=== PATIENT | female | born 1975 | race Caucasian/White ===

== ENCOUNTER 2019-10-04 09:53 | Outpatient (CLI) | payer OTHER ==
[2019-10-04 13:05] LABS: ALBUMIN 3.6 g/dL (3.4-5.0); CHLORIDE 105 mmol/L (98-107)
[2019-10-04 13:10] LABS: ALANINE AMINOTRANSFERASE 34 U/L (12-78); ALKALINE PHOSPHATASE 75 U/L (45-117); ANION GAP 4 mmol/L (5-15); BILIRUBIN,TOTAL 0.5 mg/dL (0.2-1.0); CHOL/HDL RATIO 4.1; CHOLESTEROL, TOTAL 215 mg/dL (140-239); CREATININE 0.72 mg/dL (0.55-1.02); HDL CHOL % 24 % (28-40); HDL CHOLESTEROL (DIRECT) 52 mg/dL (40-60); LDL CHOLESTEROL,CALCULATED 132 mg/dL (54-169); LDL/HDL RATIO 2.5 (0.5-3.0); TOTAL PROTEIN 7.4 g/dL (6.4-8.2); TRIGLYCERIDES 155 mg/dL (50-200); VLDL CHOLESTEROL 31 mg/dL (0-25)
== END 2019-10-04 23:59 | disposition home or self-care (01) ==
LOC: CFH 09:53
PROVIDERS: ATTEND Internal Medicine Cardiovascular Disease
DX: E78.5 Hyperlipidemia, unspecified (principal)
CPT/HCPCS: 36415; 80053; 80061

== ENCOUNTER → 2019-10-10 | Outpatient (CLI) | payer OTHER | END | disposition home or self-care (01) | LOC: CVU 13:32 | PROVIDERS: ATTEND Internal Medicine Cardiovascular Disease | DX: I08.8 Other rheumatic multiple valve diseases (principal) | CPT/HCPCS: 93306 ==

== ENCOUNTER 2019-12-12 09:56 | Day surgery (SDC) | payer OTHER ==
[~2019-12-12] VITALS: Ht 160 cm; Wt 81.8 kg
[2019-12-12] MEDS ORDERED: SODIUM CHLORIDE 0.9% 1,000 ML IV SCH (10:30)
[2019-12-12] MEDS ORDERED: ASCO10004 PO (10:33)
[2019-12-12] MEDS ORDERED: ACYC-114 PO (10:33)
[2019-12-12] MEDS ORDERED: CALCIUM ZINC MAG PO (10:33)
[2019-12-12] MEDS ORDERED: Vitamin D PO (10:33)
[2019-12-12] MEDS ORDERED: IBUP-1223 PO (10:33)
[2019-12-12] MEDS ORDERED: PROPOFOL 10 MG/ML, 50ML ONE (12:03)
== END 2019-12-12 13:30 | disposition home or self-care (01) ==
LOC: CACL 09:56
PROVIDERS: ATTEND Internal Medicine Cardiovascular Disease
DX: Z09 Encounter for follow-up examination after completed treatment for conditions other than malignant neoplasm (principal); I10 Essential (primary) hypertension; E78.5 Hyperlipidemia, unspecified; F17.210 Nicotine dependence, cigarettes, uncomplicated; Z79.1 Long term (current) use of non-steroidal anti-inflammatories (NSAID); Z79.899 Other long term (current) drug therapy; Z88.0 Allergy status to penicillin; Z90.49 Acquired absence of other specified parts of digestive tract; Z98.890 Other specified postprocedural states
CPT/HCPCS: 93312; 93321; 93325; J2704

== ENCOUNTER → 2020-06-12 | Outpatient (CLI) | payer OTHER ==
[~2020-06-12] MED LIST: ACYC-114 PO; ASCO100018 PO; CALCIUM ZINC MAG PO; IBUP-1223 PO; Vitamin D PO
== END | disposition home or self-care (01) ==
LOC: CFH 15:54
PROVIDERS: ATTEND Registered Nurse
DX: I36.1 Nonrheumatic tricuspid (valve) insufficiency (principal); Q21.1 Atrial septal defect
CPT/HCPCS: 93306

== ENCOUNTER → 2020-08-19 | Outpatient (CLI) | payer OTHER ==
[2020-08-19 10:21] LABS: ALBUMIN 3.6 g/dL (3.4-5.0); ANION GAP 5 mmol/L (5-15); CHLORIDE 106 mmol/L (98-107)
[2020-08-19 10:25] LABS: ALANINE AMINOTRANSFERASE 42 U/L (12-78); ALKALINE PHOSPHATASE 77 U/L (45-117); BILIRUBIN,TOTAL 0.6 mg/dL (0.2-1.0); CHOL/HDL RATIO 3.3; CHOLESTEROL, TOTAL 214 mg/dL (140-239); CREATININE 0.71 mg/dL (0.55-1.02); HDL CHOL % 30 % (28-40); HDL CHOLESTEROL (DIRECT) 64 mg/dL (40-60); LDL CHOLESTEROL,CALCULATED 98 mg/dL (54-169); LDL/HDL RATIO 1.5 (0.5-3.0); TOTAL PROTEIN 7.3 g/dL (6.4-8.2); TRIGLYCERIDES 258 mg/dL (50-200); VLDL CHOLESTEROL 52 mg/dL (0-25)
== END | disposition home or self-care (01) ==
LOC: LAB 09:55
PROVIDERS: ATTEND Internal Medicine Cardiovascular Disease
DX: E78.5 Hyperlipidemia, unspecified (principal)
CPT/HCPCS: 36415; 80053; 80061